=== PATIENT | male | born 1955 | race Caucasian/White ===

== ENCOUNTER 2020-04-14 07:26 | Inpatient (IN) ==
[2020-04-14] MEDS ORDERED: GLUCAGON 1 MG VIAL IM PRN (12:09)
[2020-04-14] MEDS ORDERED: DEXTROSE 50% 25 GM/50 ML VIAL IV PRN (12:09)
[2020-04-14] MEDS ORDERED: NITROGLYCERIN SL 0.4 MG TABLET SL PRN (12:15)
[2020-04-14] MEDS ORDERED: MORPHINE 4 MG/1 ML VIAL IV PRN (12:15)
[2020-04-14] MEDS ORDERED: CLORAZEPATE 3.75 MG TABLET PO PRN (12:15)
[2020-04-14] MEDS ORDERED: ZALEPLON 5 MG CAPSULE PO PRN (12:18)
[2020-04-14] MEDS ORDERED: SODIUM CHLORIDE 0.9% 1,000 ML IV SCH (12:30)
[2020-04-14 14:34] LABS: Basophils # 0.1 10*3/uL (0.0-0.2); Basophils % 0.9 % (0.0-0.8); Eosinophils # 0.4 10*3/uL (0.0-0.87); Eosinophils % 5.4 % (0.00-10.9); Hematocrit 39.2 VOL% (42.0-52.0); Hemoglobin 13.6 GM/DL (14.0-18.0); Immature Granulocytes % 0.3 %; Immature Granulocytes Absolute 0.02 #; Lymphocytes # 2.9 10*3/uL (1.4-4.0); Lymphocytes % 40.4 % (21.2-54.2); Mean Corpuscular HGB Conc 34.7 GM/DL (32-36); Mean Corpuscular Volume 88.7 FL (87-102); Mean Platelet Volume 9.5 FL (9.6-12.0); Monocytes % 7.8 % (1.7-12.7); Neutrophils % 45.2 % (38.7-73.9); Platelet Count 216 T/CUMM (130-400); Red Blood Count 4.42 MC/CUMM (3.8-5.5); Red Cell Distribution Width 12.3 % (9.3-17.3); White Blood Count 7.1 T/CUMM (4-12)
[2020-04-14 14:41] LABS: Bilirubin,Total 0.4 MG/DL (0.2-1.0); Calcium 9.4 MG/DL (8.5-10.1); Osmolality,Calculated 278.4 MOS/KG (273-304); Potassium 4.1 MMOL/L (3.5-5.1); Total Protein 7.9 G/DL (6.4-8.3)
[2020-04-14 15:45] LABS: ABG Base Excess 2.6 MMOL/L (-2.5-2.5); ABG HCO3 26.7 MMOL/L (20-26); ABG PCO2 41.4 MM HG (35-48); ABG PH 7.426 (7.35-7.45); ABG PO2 92.9 MM HG (80-95); ABG TCO2 23.5 MMOL/L (23-27); Allen Test Positive; Pt O2 Delivery Device Room Air
[2020-04-14] MEDS: CHLORHEXIDINE 4% SOLN 118 ML BOTTLE TOP SCH ×2 (17:47→20:43)
[2020-04-14] MEDS: CHLORHEXIDINE 0.12% ORAL RINSE 60 ML BOTTLE SWISH/SPIT SCH (20:36)
[2020-04-15] MEDS ORDERED: PAPAVERINE 60 MG/2 ML VIAL ONE (04:22)
[2020-04-15] MEDS ORDERED: VANCOMYCIN 500 MG VIAL ONE (04:23)
[2020-04-15] MEDS ORDERED: VANCOMYCIN 1,000 MG VIAL ONE (04:23)
[2020-04-15] MEDS ORDERED: CEFUROXIME INJ 1,500 MG in SYRINGE 1 EACH IV ONE (05:00)
[2020-04-15] MEDS ORDERED: FAMOTIDINE 20 MG TABLET PO ONE (05:45)
[2020-04-15] MEDS ORDERED: SODIUM CHLORIDE 0.9% 250 ML IV ONE (05:54)
[2020-04-15] MEDS ORDERED: AMINOCAPROIC ACID 5,000 MG/20 ML VIAL ONE (05:54)
[2020-04-15] MEDS ORDERED: LACTATED RINGERS 1,000 ML IV ONE (05:54)
[2020-04-15] MEDS ORDERED: VECURONIUM 10 MG VIAL IV ONE (05:54)
[2020-04-15] MEDS ORDERED: ETOMIDATE 40 MG/20 ML VIAL IV ONE (05:54)
[2020-04-15] MEDS ORDERED: PHENYLEPHRINE DRIP 20 MG/250 ML PREMIX IV ONE (05:54)
[2020-04-15] MEDS ORDERED: SEVOFLURANE 1 UNIT/15 MINUTE INH ONE ×10 (05:54→07:57)
[2020-04-15] MEDS ORDERED: NITROGLYCERIN DRIP 50 MG/250 ML BOTTLE IV ONE ×2 (05:54→11:57)
[2020-04-15] MEDS ORDERED: SODIUM CHLORIDE 0.9% 0 ML IV ONE ×3 (05:54→07:56)
[2020-04-15] MEDS ORDERED: SUFentanil 250 MCG/5 ML AMP ONE (05:55)
[2020-04-15] MEDS ORDERED: ePHEDrine 50 MG/ML VIAL ONE (05:55)
[2020-04-15] MEDS ORDERED: MIDAZOLAM 10 MG/2 ML VIAL ONE ×3 (05:55→07:58)
[2020-04-15] MEDS ORDERED: DIAZEPAM 5 MG TABLET PO ONE (06:00)
[2020-04-15] MEDS ORDERED: MINERAL OIL/PETROLATUM OPH OINT 3.5 GM TUBE ONE (06:16)
[2020-04-15 07:26] LABS: ABG Base Excess 1.3 MMOL/L (-2.5-2.5); ABG HCO3 25.6 MMOL/L (20-26); ABG PCO2 46.7 MM HG (35-48); ABG PH 7.373 (7.35-7.45); ABG TCO2 23.8 MMOL/L (23-27); Glucose Heart Surgery 124 MG/DL (74-106); Hematocrit Heart Surgery 40.2 PERCENT (42-52); Hemoglobin Heart Surgery 13.1 G/DL (14.0-18.0); Ionized Calcium Arterial 1.24 MMOL/L (1.21-1.46); PCO2 Patient Temp Arterial 46.7 MMHG; PH Patient Temp Arterial 7.373; Patient Temperature 37 CELCIUS; Potassium Heart/CVR 3.6 MMOL/L (3.5-5.1); Sodium Heart/CVR 139 MMOL/L (135-145)
[2020-04-15 07:35] LABS: Bacteria,Urine Occasional /HPF (Few); Bilirubin,Urine Negative (Negative); Blood, Urine Large mg/dL (Negative); Glucose,Urine (UA) Negative (Negative); Ketones,Urine Negative (Negative); Mucus,Urine Moderate /LPF (Occasional); Nitrite,Urine Negative (Negative); Protein,Urine Negative; RBC,Urine 201 /HPF (0-4); Urine Appearance CLEAR (Clear); Urine Color Yellow (Yellow); Urine Urobilinogen < 2.0 EU/DL (0.2-1.0); WBC,Urine 1 /HPF (0-6)
[2020-04-15] MEDS ORDERED: FUROSEMIDE 20 MG/2 ML VIAL ONE ×2 (07:40→10:23)
[2020-04-15] MEDS ORDERED: SODIUM BICARBONATE 50 MEQ/50 ML VIAL IV ONE (07:51)
[2020-04-15] MEDS ORDERED: POTASSIUM CHLORIDE RIDER 100 ML IV ONE (07:51)
[2020-04-15] MEDS ORDERED: NITROPRUSSIDE 50 MG/2 ML VIAL ONE (07:51)
[2020-04-15] MEDS ORDERED: PHENYLEPHRINE DRIP 40 MG/250 ML PREMIX IV ONE (07:51)
[2020-04-15] MEDS ORDERED: CALCIUM CHLORIDE 1,000 MG/10 ML SYRINGE IV ONE (07:52)
[2020-04-15] MEDS ORDERED: ALBUMIN 5% 12.5 GM/250 ML VIAL IV ONE (07:52)
[2020-04-15] MEDS ORDERED: SODIUM CHLORIDE 0.9% 1,000 ML IV ONE (07:57)
[2020-04-15 08:45] LABS: PCO2 Patient Temp Venous 37.1 MM HG; PH Patient Temp Venous 7.432; PO2 Patient Temp Venous 38.7 MM HG; Potassium Heart/CVR 4.5 MMOL/L (3.5-5.1); VBG Base Excess 0.8 MEQ/L (0-4); VBG HCO3 24.9 MEQ/L (24-28); VBG Oxygen Saturation 82.3 %; VBG PCO2 42.9 MMHG (41-51); VBG PH 7.389; VBG PO2 47.5 MMHG (17-40); VBG Total CO2 24.2 MMOL/L
[2020-04-15] MEDS ORDERED: HEPARIN/NACL 0.9% 2 UNITS/ML 500 ML IV ONE (09:03)
[2020-04-15 09:21] LABS: Hematocrit Heart Surgery 28.6 PERCENT (42-52); Hemoglobin Heart Surgery 9.2 G/DL (14.0-18.0); PCO2 Patient Temp Venous 38.1 MM HG; PH Patient Temp Venous 7.42; PO2 Patient Temp Venous 40.4 MM HG; Potassium Heart/CVR 4.9 MMOL/L (3.5-5.1); VBG Base Excess 0.5 MEQ/L (0-4); VBG HCO3 24.7 MEQ/L (24-28); VBG Oxygen Saturation 83.5 %; VBG PCO2 44.1 MMHG (41-51); VBG PH 7.377; VBG PO2 49.7 MMHG (17-40); VBG Total CO2 23.9 MMOL/L
[2020-04-15 09:53] LABS: Hematocrit Heart Surgery 31.7 PERCENT (42-52); Hemoglobin Heart Surgery 10.3 G/DL (14.0-18.0); PCO2 Patient Temp Venous 41.9 MM HG; PH Patient Temp Venous 7.389; PO2 Patient Temp Venous 45.5 MM HG; Potassium Heart/CVR 4.8 MMOL/L (3.5-5.1); VBG Base Excess 0.3 MEQ/L (0-4); VBG HCO3 24.4 MEQ/L (24-28); VBG Oxygen Saturation 79.7 %; VBG PCO2 41.9 MMHG (41-51); VBG PH 7.389; VBG PO2 45.5 MMHG (17-40); VBG Total CO2 23.1 MMOL/L
[2020-04-15 10:18] LABS: ABG Base Excess -1.9 MMOL/L (-2.5-2.5); ABG HCO3 22.9 MMOL/L (20-26); ABG PCO2 43.7 MM HG (35-48); ABG PH 7.345 (7.35-7.45); ABG TCO2 21.5 MMOL/L (23-27); Glucose Heart Surgery 214 MG/DL (74-106); Hematocrit Heart Surgery 33.9 PERCENT (42-52); Ionized Calcium Arterial 1.34 MMOL/L (1.21-1.46); PCO2 Patient Temp Arterial 43.7 MMHG; PH Patient Temp Arterial 7.345; Patient Temperature 37 CELCIUS; Potassium Heart/CVR 3.7 MMOL/L (3.5-5.1); Sodium Heart/CVR 134 MMOL/L (135-145)
[2020-04-15] MEDS ORDERED: ALBUMIN 25% 25 GM/100 ML VIAL IV ONE (10:22)
[2020-04-15] MEDS ORDERED: LIDOCAINE 2% 5 ML VIAL ONE (10:22)
[2020-04-15] MEDS ORDERED: PROTAMINE SULFATE 50 MG/5 ML VIAL IV ONE ×3 (10:23→12:03)
[2020-04-15] MEDS ORDERED: methylPREDNISolone SOD SUC 1,000 MG/8 ML VIAL ONE (10:23)
[2020-04-15] MEDS ORDERED: HEPARIN 10,000 UNIT/10 ML VIAL ONE (10:23)
[2020-04-15] MEDS ORDERED: PROTAMINE SULFATE 250 MG/25 ML VIAL IV ONE (10:23)
[2020-04-15] MEDS ORDERED: MAGNESIUM SULFATE 5 GM/10 ML VIAL IV ONE (10:23)
[2020-04-15] MEDS ORDERED: MANNITOL 100 GM/500 ML BAG IV ONE (10:23)
[2020-04-15] MEDS ORDERED: DEXTROSE 5% KCL 20 MEQ 20 MEQ/1,000 ML BAG IV ONE (10:23)
[2020-04-15] MEDS ORDERED: MAGNESIUM SULF RIDER 2 GM in PREMIX 1 EACH IV PRN (11:08)
[2020-04-15] MEDS ORDERED: INSULIN REGULAR 100 UNIT/ML IV PRN (11:08)
[2020-04-15] MEDS ORDERED: INSULIN REGULAR 100 UNIT/ML IV ONE (11:08)
[2020-04-15] MEDS ORDERED: ACETAMINOPHEN 650 MG SUPP RECTAL PRN (11:08)
[2020-04-15] MEDS ORDERED: INSULIN REGULAR DRIP 100 ML IV SCH (11:08)
[2020-04-15] MEDS ORDERED: NITROPRUSSIDE 100 MG in DEXTROSE 5% 250 ML IV PRN (11:08)
[2020-04-15] MEDS ORDERED: CALCIUM CHLORIDE 1,000 MG/10 ML SYRINGE IV PRN (11:08)
[2020-04-15] MEDS ORDERED: PHENYLEPHRINE DRIP 40 MG/250 ML PREMIX IV PRN (11:08)
[2020-04-15] MEDS ORDERED: MIDAZOLAM 2 MG/2 ML VIAL IV PRN (11:08)
[2020-04-15] MEDS ORDERED: MORPHINE 10 MG/1 ML VIAL IV PRN (11:08)
[2020-04-15] MEDS ORDERED: SODIUM CHLORIDE 0.45% 1,000 ML IV SCH ×2 (11:08)
[2020-04-15] MEDS ORDERED: CHLORHEXIDINE 4% SOLN 118 ML BOTTLE TOP PRN (11:08)
[2020-04-15] MEDS ORDERED: MAGNESIUM SULF RIDER 4 GM in PREMIX 1 EACH IV PRN (11:08)
[2020-04-15] MEDS ORDERED: VECURONIUM 10 MG VIAL IV PRN ×2 (11:08)
[2020-04-15] MEDS ORDERED: DEXTROSE 50% 25 GM/50 ML VIAL IV PRN ×2 (11:08)
[2020-04-15] MEDS ORDERED: ONDANSETRON 4 MG/2 ML VIAL IV PRN (11:08)
[2020-04-15 11:22] LABS: ABG Base Excess -1.3 MMOL/L (-2.5-2.5); ABG HCO3 23.3 MMOL/L (20-26); ABG PCO2 40.2 MM HG (35-48); ABG PH 7.378 (7.35-7.45); ABG TCO2 21.3 MMOL/L (23-27); Glucose Heart Surgery 166 MG/DL (74-106); Hematocrit Heart Surgery 34.1 PERCENT (42-52); Hemoglobin Heart Surgery 11.1 G/DL (14.0-18.0); Potassium Heart/CVR 3.7 MMOL/L (3.5-5.1)
[2020-04-15] MEDS: ALBUMIN 5% 12.5 GM in PREMIX 1 EACH IV PRN ×2 (11:26→12:38)
[2020-04-15] MEDS: CHLORHEXIDINE 4% SOLN 118 ML BOTTLE TOP SCH (11:32)
[2020-04-15] MEDS: POTASSIUM CHLORIDE RIDER 20 MEQ in PREMIX 1 EACH IV PRN ×4 (11:34→16:54)
[2020-04-15 11:39] LABS: Basophils # 0.1 10*3/uL (0.0-0.2); Basophils % 0.4 % (0.0-0.8); Eosinophils # 0.2 10*3/uL (0.0-0.87); Eosinophils % 1.7 % (0.00-10.9); Hematocrit 32.6 VOL% (42.0-52.0); Immature Granulocytes % 0.6 %; Immature Granulocytes Absolute 0.08 #; Lymphocytes # 1.5 10*3/uL (1.4-4.0); Lymphocytes % 11.7 % (21.2-54.2); Mean Corpuscular HGB Conc 33.7 GM/DL (32-36); Mean Corpuscular Volume 91.1 FL (87-102); Mean Platelet Volume 9.5 FL (9.6-12.0); Monocytes % 3.8 % (1.7-12.7); Neutrophils % 81.8 % (38.7-73.9); Red Blood Count 3.58 MC/CUMM (3.8-5.5); Red Cell Distribution Width 12.2 % (9.3-17.3)
[2020-04-15 11:43] LABS: INR 1.2; PT Patient Result 12.5 SECS (9.8-11.9); Partial Thromboplastin Time 27.4 SECS (23.9-33.8)
[2020-04-15 11:44] LABS: White Blood Count 12.6 T/CUMM (4-12)
[2020-04-15 11:45] LABS: Platelet Count 167 T/CUMM (130-400)
[2020-04-15] MEDS: CHLORHEXIDINE 0.12% ORAL RINSE 60 ML BOTTLE SWISH/SPIT SCH ×2 (11:48→20:29)
[2020-04-15 11:49] LABS: CKMB % 6.4 %
[2020-04-15 11:51] LABS: Troponin I 2.69 NG/ML (0.00-0.045)
[2020-04-15] MEDS ORDERED: NITROGLYCERIN DRIP 50 MG/250 ML BOTTLE IV PRN (11:57)
[2020-04-15 11:58] LABS: Albumin 3.4 G/DL (3.4-5.0); Bilirubin,Total 0.7 MG/DL (0.2-1.0); Calcium 8.1 MG/DL (8.5-10.1); Osmolality,Calculated 283.3 MOS/KG (273-304); Potassium 3.8 MMOL/L (3.5-5.1); Total Protein 6.1 G/DL (6.4-8.3)
[2020-04-15] MEDS: MIDAZOLAM 10 MG/2 ML VIAL IV PRN ×2 (12:12→14:00)
[2020-04-15] MEDS: POTASSIUM CHLORIDE RIDER 10 MEQ in PREMIX 1 EACH IV PRN ×2 (12:24→17:28)
[2020-04-15] MEDS: LACTATED RINGERS 250 ML IV PRN ×5 (12:33→14:46)
[2020-04-15] MEDS: MORPHINE 4 MG/1 ML VIAL IV PRN ×3 (13:20→20:19)
[2020-04-15 13:54] LABS: ABG Base Excess -2.4 MMOL/L (-2.5-2.5); ABG HCO3 22.4 MMOL/L (20-26); ABG PCO2 35.8 MM HG (35-48); ABG PH 7.396 (7.35-7.45); ABG TCO2 20.1 MMOL/L (23-27); Glucose Heart Surgery 166 MG/DL (74-106); Hematocrit Heart Surgery 29.7 PERCENT (42-52); Hemoglobin Heart Surgery 9.6 G/DL (14.0-18.0); Potassium Heart/CVR 3.4 MMOL/L (3.5-5.1)
[2020-04-15 16:37] LABS: ABG Base Excess -5.8 MMOL/L (-2.5-2.5); ABG HCO3 19.7 MMOL/L (20-26); ABG Oxygen Saturation 99.4 % (95-100); ABG PCO2 38.2 MM HG (35-48); ABG PH 7.322 (7.35-7.45); ABG TCO2 18.3 MMOL/L (23-27); Glucose Heart Surgery 219 MG/DL (74-106); Hematocrit Heart Surgery 28.1 PERCENT (42-52); Hemoglobin Heart Surgery 9.1 G/DL (14.0-18.0); Potassium Heart/CVR 3.7 MMOL/L (3.5-5.1)
[2020-04-15] MEDS: KETOROLAC 30 MG/1 ML VIAL IV SCH ×3 (17:11→22:51)
[2020-04-15] MEDS: CEFUROXIME INJ 1,500 MG in SYRINGE 1 EACH IV SCH (18:10)
[2020-04-15] MEDS: METOPROLOL TARTRATE 25 MG TABLET PO SCH (18:31)
[2020-04-15 20:04] LABS: ABG Base Excess -6.1 MMOL/L (-2.5-2.5); ABG HCO3 19.4 MMOL/L (20-26); ABG Oxygen Saturation 98.1 % (95-100); ABG PCO2 36.5 MM HG (35-48); ABG TCO2 17.6 MMOL/L (23-27); Glucose Heart Surgery 198 MG/DL (74-106); Hematocrit Heart Surgery 31.1 PERCENT (42-52); Hemoglobin Heart Surgery 10.1 G/DL (14.0-18.0); Potassium Heart/CVR 4.1 MMOL/L (3.5-5.1)
[2020-04-15 20:28] LABS: Troponin I 3.02 NG/ML (0.00-0.045)
[2020-04-15] MEDS: INSULIN REGULAR 100 UNIT/ML SUBCUT SCH (20:29)
[2020-04-15] MEDS ORDERED: ZOLPIDEM 5 MG TABLET PO ONE (21:09)
[2020-04-15] MEDS: CLORAZEPATE 3.75 MG TABLET PO PRN (21:39)
[2020-04-16] MEDS: CLORAZEPATE 3.75 MG TABLET PO PRN (04:14)
[2020-04-16 04:25] LABS: ABG Base Excess -2.4 MMOL/L (-2.5-2.5); ABG HCO3 22.4 MMOL/L (20-26); ABG Oxygen Saturation 97.2 % (95-100); ABG PCO2 37.5 MM HG (35-48); ABG PH 7.383 (7.35-7.45); ABG TCO2 20.5 MMOL/L (23-27); Glucose Heart Surgery 169 MG/DL (74-106); Hematocrit Heart Surgery 28.7 PERCENT (42-52); Hemoglobin Heart Surgery 9.3 G/DL (14.0-18.0); Potassium Heart/CVR 3.8 MMOL/L (3.5-5.1)
[2020-04-16 04:57] LABS: Basophils % 0.1 % (0.0-0.8); Hematocrit 27.1 VOL% (42.0-52.0); Hemoglobin 9.2 GM/DL (14.0-18.0); Immature Granulocytes % 0.6 %; Immature Granulocytes Absolute 0.07 #; Lymphocytes # 0.9 10*3/uL (1.4-4.0); Mean Corpuscular HGB Conc 33.9 GM/DL (32-36); Mean Corpuscular Volume 90.3 FL (87-102); Mean Platelet Volume 9.9 FL (9.6-12.0); Neutrophils % 86.3 % (38.7-73.9); Platelet Count 147 T/CUMM (130-400); Red Cell Distribution Width 13.1 % (9.3-17.3); White Blood Count 10.9 T/CUMM (4-12)
[2020-04-16 05:05] LABS: Troponin I 2.59 NG/ML (0.00-0.045)
[2020-04-16 05:12] LABS: Albumin 3.5 G/DL (3.4-5.0); Bilirubin,Direct 0.17 MG/DL (0.0-0.20); Bilirubin,Total 0.6 MG/DL (0.2-1.0); Calcium 8.5 MG/DL (8.5-10.1); Osmolality,Calculated 283.5 MOS/KG (273-304); Potassium 3.9 MMOL/L (3.5-5.1)
[2020-04-16] MEDS: POTASSIUM CHLORIDE RIDER 20 MEQ in PREMIX 1 EACH IV PRN (05:34)
[2020-04-16] MEDS: KETOROLAC 30 MG/1 ML VIAL IV SCH ×4 (05:34→23:23)
[2020-04-16] MEDS: CEFUROXIME INJ 1,500 MG in SYRINGE 1 EACH IV SCH ×2 (05:46→18:03)
[2020-04-16] MEDS ORDERED: FUROSEMIDE 40 MG/4 ML VIAL IV ONE (06:12)
[2020-04-16] MEDS ORDERED: FUROSEMIDE 40 MG/4 ML VIAL ONE (06:15)
[2020-04-16] MEDS ORDERED: DIAZEPAM 5 MG TABLET PO ONE (07:31)
[2020-04-16] MEDS: ASPIRIN EC 325 MG TABLET PO SCH (08:00)
[2020-04-16] MEDS: METOPROLOL TARTRATE 25 MG TABLET PO SCH ×2 (08:00→21:17)
[2020-04-16] MEDS: CHLORHEXIDINE 0.12% ORAL RINSE 60 ML BOTTLE SWISH/SPIT SCH ×3 (08:53→21:17)
[2020-04-16] MEDS ORDERED: MAGNESIUM SULF RIDER 2 GM in PREMIX 1 EACH IV PRN (08:55)
[2020-04-16] MEDS ORDERED: ACETAMINOPHEN 325 MG TABLET PO PRN (08:55)
[2020-04-16] MEDS ORDERED: ONDANSETRON 4 MG/2 ML VIAL IV PRN (08:55)
[2020-04-16] MEDS ORDERED: MAGNESIUM SULF RIDER 4 GM in PREMIX 1 EACH IV PRN (08:55)
[2020-04-16] MEDS ORDERED: DEXTROSE 50% 25 GM/50 ML VIAL IV PRN (08:55)
[2020-04-16] MEDS ORDERED: POTASSIUM CHLORIDE 20 MEQ TABLET PO PRN (08:55)
[2020-04-16] MEDS ORDERED: MAGNESIUM HYDROXIDE SUSP 30 ML UDCUP PO PRN (08:55)
[2020-04-16] MEDS ORDERED: GLUCAGON 1 MG VIAL IM PRN (08:55)
[2020-04-16] MEDS ORDERED: ALUMINUM/MAGNES/SIMETH MAX STR 30 ML UDCUP PO PRN (08:55)
[2020-04-16] MEDS: SODIUM CHLOR 0.45% KCL 20 MEQ 20 MEQ/1,000 ML BAG IV SCH (09:54)
[2020-04-16] MEDS: PANTOPRAZOLE 40 MG TABLET PO SCH (09:55)
[2020-04-16] MEDS: FERROUS SULFATE 325 MG TABLET PO SCH (09:55)
[2020-04-16] MEDS: DOCUSATE SODIUM 100 MG CAPSULE PO SCH (09:55)
[2020-04-16] MEDS ORDERED: OXYMETAZOLINE 0.05% NASAL SPRAY 15 ML BOTTLE BOTH NARES PRN (10:41)
[2020-04-16] MEDS: INSULIN REGULAR 100 UNIT/ML SUBCUT SCH (11:27)
[2020-04-16 12:57] LABS: Troponin I 2.89 NG/ML (0.00-0.045)
[2020-04-16] MEDS ORDERED: AMIODARONE INJ 150 MG in DEXTROSE 5% 100 ML IV ONE (17:08)
[2020-04-16] MEDS ORDERED: DILTIAZEM 50 MG/10 ML VIAL IV ONE (17:09)
[2020-04-16] MEDS ORDERED: DILTIAZEM INJ 100 MG in SODIUM CHLORIDE 0.9% 100 ML IV SCH (17:30)
[2020-04-16] MEDS: AMIODARONE INJ 450 MG in DEXTROSE 5% 241 ML IV SCH (17:45)
[2020-04-16] MEDS ORDERED: AMIODARONE INJ 450 MG in DEXTROSE 5% 241 ML IV SCH (18:00)
[2020-04-16] MEDS ORDERED: ZALEPLON 5 MG CAPSULE PO SCH (21:00)
[2020-04-16] MEDS: oxyCODONE/ACETAMINOPHEN 5-325 MG TABLET PO PRN (21:17)
[2020-04-16] MEDS: ROSUVASTATIN 20 MG TABLET PO SCH (21:17)
[2020-04-17] MEDS: AMIODARONE INJ 450 MG in DEXTROSE 5% 241 ML IV SCH (02:09)
[2020-04-17] MEDS: KETOROLAC 30 MG/1 ML VIAL IV SCH ×3 (05:16→19:03)
[2020-04-17] MEDS ORDERED: FUROSEMIDE 40 MG/4 ML VIAL IV ONE (06:00)
[2020-04-17 06:02] LABS: Basophils % 0.2 % (0.0-0.8); Eosinophils % 0.1 % (0.00-10.9); Hematocrit 30.2 VOL% (42.0-52.0); Hemoglobin 10.3 GM/DL (14.0-18.0); Immature Granulocytes % 0.9 %; Immature Granulocytes Absolute 0.16 #; Lymphocytes % 10.9 % (21.2-54.2); Mean Corpuscular HGB Conc 34.1 GM/DL (32-36); Mean Corpuscular Volume 90.7 FL (87-102); Mean Platelet Volume 10.3 FL (9.6-12.0); Monocytes % 9.3 % (1.7-12.7); Neutrophils % 78.6 % (38.7-73.9); Platelet Count 139 T/CUMM (130-400); Red Blood Count 3.33 MC/CUMM (3.8-5.5); Red Cell Distribution Width 13.4 % (9.3-17.3); White Blood Count 18.4 T/CUMM (4-12)
[2020-04-17 06:08] LABS: Albumin 3.2 G/DL (3.4-5.0); Albumin 3.4 G/DL (3.4-5.0); Bilirubin,Direct 0.18 MG/DL (0.0-0.20); Bilirubin,Direct 0.24 MG/DL (0.0-0.20); Bilirubin,Total 0.7 MG/DL (0.2-1.0); Bilirubin,Total 1.2 MG/DL (0.2-1.0); CKMB % 1.2 %; Calcium 8.5 MG/DL (8.5-10.1); Potassium 4.5 MMOL/L (3.5-5.1); Total Protein 5.9 G/DL (6.4-8.3); Total Protein 6.2 G/DL (6.4-8.3)
[2020-04-17 06:09] LABS: Troponin I 1.24 NG/ML (0.00-0.045)
[2020-04-17] MEDS: ASCORBIC ACID 500 MG TABLET PO SCH ×2 (09:27→19:59)
[2020-04-17] MEDS: AMIODARONE 200 MG TABLET PO SCH ×2 (09:27→20:00)
[2020-04-17] MEDS: CYANOCOBALAMIN 500 MCG TABLET PO SCH (09:27)
[2020-04-17] MEDS: ASPIRIN EC 325 MG TABLET PO SCH (09:27)
[2020-04-17] MEDS: METOPROLOL TARTRATE 25 MG TABLET PO SCH ×2 (09:27→19:59)
[2020-04-17] MEDS: PANTOPRAZOLE 40 MG TABLET PO SCH (09:27)
[2020-04-17] MEDS: DOCUSATE SODIUM 100 MG CAPSULE PO SCH (09:27)
[2020-04-17] MEDS: FERROUS SULFATE 325 MG TABLET PO SCH (09:27)
[2020-04-17] MEDS: oxyCODONE/ACETAMINOPHEN 5-325 MG TABLET PO PRN ×2 (09:37→19:59)
[2020-04-17] MEDS: CHLORHEXIDINE 0.12% ORAL RINSE 60 ML BOTTLE SWISH/SPIT SCH ×2 (09:40→20:00)
[2020-04-17] MEDS: SODIUM CHLOR 0.45% KCL 20 MEQ 20 MEQ/1,000 ML BAG IV SCH (09:40)
[2020-04-17] MEDS: ROSUVASTATIN 20 MG TABLET PO SCH (19:59)
[2020-04-17] MEDS ORDERED: traZODone 50 MG TABLET PO SCH (21:00)
[2020-04-18] MEDS: KETOROLAC 30 MG/1 ML VIAL IV SCH ×4 (00:09→17:09)
[2020-04-18 05:58] LABS: Basophils % 0.2 % (0.0-0.8); Eosinophils # 0.1 10*3/uL (0.0-0.87); Eosinophils % 0.6 % (0.00-10.9); Hematocrit 29.8 VOL% (42.0-52.0); Immature Granulocytes % 0.7 %; Immature Granulocytes Absolute 0.08 #; Lymphocytes % 25.1 % (21.2-54.2); Mean Corpuscular HGB Conc 33.6 GM/DL (32-36); Mean Platelet Volume 9.8 FL (9.6-12.0); Monocytes % 7.9 % (1.7-12.7); Neutrophils % 65.5 % (38.7-73.9); Platelet Count 139 T/CUMM (130-400); Red Blood Count 3.24 MC/CUMM (3.8-5.5); Red Cell Distribution Width 13.2 % (9.3-17.3); White Blood Count 11.9 T/CUMM (4-12)
[2020-04-18 06:22] LABS: Calcium 8.4 MG/DL (8.5-10.1); Osmolality,Calculated 279.8 MOS/KG (273-304); Potassium 3.6 MMOL/L (3.5-5.1)
[2020-04-18 06:26] LABS: Albumin 3.1 G/DL (3.4-5.0); Bilirubin,Direct 0.19 MG/DL (0.0-0.20); Bilirubin,Total 0.7 MG/DL (0.2-1.0); Calcium 8.3 MG/DL (8.5-10.1); Osmolality,Calculated 282.5 MOS/KG (273-304); Potassium 3.6 MMOL/L (3.5-5.1); Total Protein 5.9 G/DL (6.4-8.3)
[2020-04-18 06:27] LABS: Alanine Aminotransferase 43 U/L (16-61); Albumin 3.1 G/DL (3.4-5.0); Alkaline Phosphatase 39 U/L (45-117); Aspartate Amino Transferase 27 U/L (0-37); Bilirubin,Indirect 1.1 MG/DL (0.0-1.0); Total Protein 5.8 G/DL (6.4-8.3)
[2020-04-18 06:37] LABS: Troponin I 0.788 NG/ML (0.00-0.045)
[2020-04-18] MEDS ORDERED: POTASSIUM CHLORIDE 20 MEQ TABLET PO ONE (08:12)
[2020-04-18] MEDS ORDERED: FUROSEMIDE 40 MG/4 ML VIAL IV ONE (08:29)
[2020-04-18] MEDS ORDERED: AMIODARONE 150 MG/3 ML VIAL ONE (08:35)
[2020-04-18] MEDS ORDERED: AMIODARONE 450 MG/9 ML VIAL IV ONE (08:36)
[2020-04-18] MEDS ORDERED: DIGOXIN 0.5 MG/2 ML AMP IV ONE (08:42)
[2020-04-18] MEDS ORDERED: DILTIAZEM 50 MG/10 ML VIAL IV ONE (08:47)
[2020-04-18] MEDS ORDERED: AMIODARONE INJ 150 MG in DEXTROSE 5% 100 ML IV ONE (08:48)
[2020-04-18] MEDS: DILTIAZEM INJ 100 MG in SODIUM CHLORIDE 0.9% 100 ML IV SCH (09:41)
[2020-04-18] MEDS: ASPIRIN EC 325 MG TABLET PO SCH (10:17)
[2020-04-18] MEDS: APIXABAN 5 MG TABLET PO SCH ×2 (10:17→21:10)
[2020-04-18] MEDS: FERROUS SULFATE 325 MG TABLET PO SCH (10:17)
[2020-04-18] MEDS: CYANOCOBALAMIN 500 MCG TABLET PO SCH (10:18)
[2020-04-18] MEDS: AMIODARONE 200 MG TABLET PO SCH ×2 (10:18→21:11)
[2020-04-18] MEDS: PANTOPRAZOLE 40 MG TABLET PO SCH (10:18)
[2020-04-18] MEDS: METOPROLOL TARTRATE 25 MG TABLET PO SCH ×2 (10:18→21:10)
[2020-04-18] MEDS: ASCORBIC ACID 500 MG TABLET PO SCH ×2 (10:18→21:10)
[2020-04-18] MEDS: DOCUSATE SODIUM 100 MG CAPSULE PO SCH (10:18)
[2020-04-18] MEDS: CHLORHEXIDINE 0.12% ORAL RINSE 60 ML BOTTLE SWISH/SPIT SCH ×2 (10:25→21:16)
[2020-04-18] MEDS: ALBUTEROL/IPRATROPIUM 3 ML NEB RESP TX SCH ×2 (11:20→19:41)
[2020-04-18] MEDS: oxyCODONE/ACETAMINOPHEN 5-325 MG TABLET PO PRN (21:11)
[2020-04-18] MEDS: ZALEPLON 5 MG CAPSULE PO SCH (21:12)
[2020-04-18] MEDS: ROSUVASTATIN 20 MG TABLET PO SCH (21:15)
[2020-04-19] MEDS: ALBUTEROL/IPRATROPIUM 3 ML NEB RESP TX SCH ×4 (00:32→19:23)
[2020-04-19] MEDS: KETOROLAC 30 MG/1 ML VIAL IV SCH ×5 (00:53→23:30)
[2020-04-19 04:52] LABS: Basophils % 0.3 % (0.0-0.8); Eosinophils # 0.2 10*3/uL (0.0-0.87); Eosinophils % 2.4 % (0.00-10.9); Hematocrit 28.3 VOL% (42.0-52.0); Hemoglobin 9.4 GM/DL (14.0-18.0); Immature Granulocytes % 1.2 %; Immature Granulocytes Absolute 0.11 #; Lymphocytes # 2.6 10*3/uL (1.4-4.0); Lymphocytes % 27.6 % (21.2-54.2); Mean Corpuscular HGB Conc 33.2 GM/DL (32-36); Mean Corpuscular Volume 91.9 FL (87-102); Mean Platelet Volume 9.8 FL (9.6-12.0); Monocytes % 7.4 % (1.7-12.7); Neutrophils % 61.1 % (38.7-73.9); Platelet Count 159 T/CUMM (130-400); Red Blood Count 3.08 MC/CUMM (3.8-5.5); Red Cell Distribution Width 13.2 % (9.3-17.3); White Blood Count 9.6 T/CUMM (4-12)
[2020-04-19 05:07] LABS: Calcium 8.2 MG/DL (8.5-10.1); Osmolality,Calculated 283.5 MOS/KG (273-304); Potassium 3.7 MMOL/L (3.5-5.1)
[2020-04-19] MEDS: ASPIRIN EC 81 MG TABLET PO SCH (09:45)
[2020-04-19] MEDS: METOPROLOL TARTRATE 25 MG TABLET PO SCH ×2 (09:46→20:00)
[2020-04-19] MEDS: ASCORBIC ACID 500 MG TABLET PO SCH ×2 (09:46→20:00)
[2020-04-19] MEDS: FERROUS SULFATE 325 MG TABLET PO SCH (09:46)
[2020-04-19] MEDS: CYANOCOBALAMIN 500 MCG TABLET PO SCH (09:46)
[2020-04-19] MEDS: APIXABAN 5 MG TABLET PO SCH ×2 (09:46→20:00)
[2020-04-19] MEDS: DOCUSATE SODIUM 100 MG CAPSULE PO SCH (09:46)
[2020-04-19] MEDS: AMIODARONE 200 MG TABLET PO SCH ×2 (09:46→20:00)
[2020-04-19] MEDS: POTASSIUM CHLORIDE 20 MEQ TABLET PO SCH (09:46)
[2020-04-19] MEDS: PANTOPRAZOLE 40 MG TABLET PO SCH (09:46)
[2020-04-19] MEDS: oxyCODONE/ACETAMINOPHEN 5-325 MG TABLET PO PRN ×2 (09:52→22:03)
[2020-04-19] MEDS: CHLORHEXIDINE 0.12% ORAL RINSE 60 ML BOTTLE SWISH/SPIT SCH ×2 (09:54→20:00)
[2020-04-19] MEDS: DILTIAZEM INJ 100 MG in SODIUM CHLORIDE 0.9% 100 ML IV SCH (09:54)
[2020-04-19] MEDS: ROSUVASTATIN 20 MG TABLET PO SCH (20:00)
[2020-04-19] MEDS: ZALEPLON 5 MG CAPSULE PO SCH (22:03)
[2020-04-20] MEDS: ALBUTEROL/IPRATROPIUM 3 ML NEB RESP TX SCH ×4 (00:26→19:13)
[2020-04-20] MEDS: KETOROLAC 30 MG/1 ML VIAL IV SCH ×2 (04:21→11:17)
[2020-04-20 06:33] LABS: Basophils % 0.3 % (0.0-0.8); Eosinophils # 0.3 10*3/uL (0.0-0.87); Eosinophils % 3.6 % (0.00-10.9); Hematocrit 28.3 VOL% (42.0-52.0); Hemoglobin 9.6 GM/DL (14.0-18.0); Immature Granulocytes % 0.9 %; Immature Granulocytes Absolute 0.08 #; Lymphocytes # 2.8 10*3/uL (1.4-4.0); Lymphocytes % 30.8 % (21.2-54.2); Mean Corpuscular HGB Conc 33.9 GM/DL (32-36); Mean Corpuscular Volume 90.4 FL (87-102); Monocytes % 7.7 % (1.7-12.7); Neutrophils % 56.7 % (38.7-73.9); Platelet Count 196 T/CUMM (130-400); Red Blood Count 3.13 MC/CUMM (3.8-5.5); Red Cell Distribution Width 13.4 % (9.3-17.3); White Blood Count 9.1 T/CUMM (4-12)
[2020-04-20 07:03] LABS: Calcium 8.6 MG/DL (8.5-10.1); Osmolality,Calculated 279.8 MOS/KG (273-304)
[2020-04-20 07:13] LABS: Alanine Aminotransferase 57 U/L (16-61); Alkaline Phosphatase 54 U/L (45-117); Aspartate Amino Transferase 28 U/L (0-37); Bilirubin,Indirect 0.5 MG/DL (0.0-1.0); Blood Urea Nitrogen 30 MG/DL (7-18); Calcium 8.6 MG/DL (8.5-10.1); Carbon Dioxide 27 MMOL/L (21-32); Estimated Glom Filtration Rate 101 ML/MIN; Glucose 115 MG/DL (74-106); Osmolality,Calculated 281.7 MOS/KG (273-304); Sodium 138 MMOL/L (136-145); Total Protein 6.2 G/DL (6.4-8.3)
[2020-04-20 07:14] LABS: Troponin I 0.242 NG/ML (0.00-0.045)
[2020-04-20] MEDS: POLYETHYLENE GLYCOL POWDER 17 GM PACK PO SCH (08:00)
[2020-04-20] MEDS: METOPROLOL TARTRATE 25 MG TABLET PO SCH ×2 (08:00→21:01)
[2020-04-20] MEDS: POTASSIUM CHLORIDE 20 MEQ TABLET PO SCH (08:01)
[2020-04-20] MEDS: DOCUSATE SODIUM 100 MG CAPSULE PO SCH (08:01)
[2020-04-20] MEDS: CYANOCOBALAMIN 500 MCG TABLET PO SCH (08:01)
[2020-04-20] MEDS: ASCORBIC ACID 500 MG TABLET PO SCH ×2 (08:02→21:02)
[2020-04-20] MEDS: APIXABAN 5 MG TABLET PO SCH ×2 (08:03→21:02)
[2020-04-20] MEDS: FERROUS SULFATE 325 MG TABLET PO SCH (08:03)
[2020-04-20] MEDS: AMIODARONE 200 MG TABLET PO SCH ×2 (08:03→21:02)
[2020-04-20] MEDS: CHLORHEXIDINE 0.12% ORAL RINSE 60 ML BOTTLE SWISH/SPIT SCH ×2 (08:03→21:02)
[2020-04-20] MEDS: PANTOPRAZOLE 40 MG TABLET PO SCH (08:03)
[2020-04-20] MEDS: ASPIRIN EC 81 MG TABLET PO SCH (08:03)
[2020-04-20] MEDS ORDERED: LACTULOSE 20 GM/30 ML UDCUP PO PRN (12:00)
[2020-04-20] MEDS: oxyCODONE/ACETAMINOPHEN 5-325 MG TABLET PO PRN ×2 (14:59→21:19)
[2020-04-20] MEDS: ROSUVASTATIN 20 MG TABLET PO SCH (21:01)
[2020-04-20] MEDS: ZALEPLON 5 MG CAPSULE PO SCH (21:02)
[2020-04-21] MEDS: ALBUTEROL/IPRATROPIUM 3 ML NEB RESP TX SCH ×4 (01:27→18:59)
[2020-04-21 04:39] LABS: Basophils % 0.3 % (0.0-0.8); Eosinophils # 0.4 10*3/uL (0.0-0.87); Eosinophils % 3.6 % (0.00-10.9); Hematocrit 23.9 VOL% (42.0-52.0); Hemoglobin 7.8 GM/DL (14.0-18.0); Immature Granulocytes % 1.2 %; Immature Granulocytes Absolute 0.14 #; Lymphocytes # 3.1 10*3/uL (1.4-4.0); Lymphocytes % 26.8 % (21.2-54.2); Mean Corpuscular HGB Conc 32.6 GM/DL (32-36); Mean Corpuscular Volume 93.7 FL (87-102); Mean Platelet Volume 9.8 FL (9.6-12.0); Monocytes % 6.7 % (1.7-12.7); Neutrophils % 61.4 % (38.7-73.9); Platelet Count 224 T/CUMM (130-400); Red Blood Count 2.55 MC/CUMM (3.8-5.5); Red Cell Distribution Width 13.2 % (9.3-17.3); White Blood Count 11.5 T/CUMM (4-12)
[2020-04-21 05:06] LABS: Alanine Aminotransferase 60 U/L (16-61); Albumin 2.7 G/DL (3.4-5.0); Alkaline Phosphatase 47 U/L (45-117); Aspartate Amino Transferase 30 U/L (0-37); Bilirubin,Indirect 0.5 MG/DL (0.0-1.0); Blood Urea Nitrogen 32 MG/DL (7-18); Carbon Dioxide 27 MMOL/L (21-32); Estimated Glom Filtration Rate 89 ML/MIN; Glucose 117 MG/DL (74-106); Osmolality,Calculated 282.7 MOS/KG (273-304); Potassium 4.7 MMOL/L (3.5-5.1); Sodium 138 MMOL/L (136-145); Total Protein 5.8 G/DL (6.4-8.3)
[2020-04-21] MEDS ORDERED: SODIUM CHLORIDE 0.9% 1,000 ML IV PRN (09:04)
[2020-04-21] MEDS ORDERED: FUROSEMIDE 40 MG/4 ML VIAL IV ONE (09:05)
[2020-04-21] MEDS: METOPROLOL TARTRATE 25 MG TABLET PO SCH ×2 (10:08→20:36)
[2020-04-21] MEDS: oxyCODONE/ACETAMINOPHEN 5-325 MG TABLET PO PRN ×2 (10:09→21:02)
[2020-04-21] MEDS: POTASSIUM CHLORIDE 20 MEQ TABLET PO SCH (10:09)
[2020-04-21] MEDS: PANTOPRAZOLE 40 MG TABLET PO SCH (10:10)
[2020-04-21] MEDS: CYANOCOBALAMIN 500 MCG TABLET PO SCH (10:10)
[2020-04-21] MEDS: FERROUS SULFATE 325 MG TABLET PO SCH (10:11)
[2020-04-21] MEDS: DOCUSATE SODIUM 100 MG CAPSULE PO SCH (10:11)
[2020-04-21] MEDS: ASCORBIC ACID 500 MG TABLET PO SCH ×2 (10:11→20:36)
[2020-04-21] MEDS: AMIODARONE 200 MG TABLET PO SCH ×2 (10:12→20:36)
[2020-04-21] MEDS: ASPIRIN EC 81 MG TABLET PO SCH (10:12)
[2020-04-21] MEDS: CHLORHEXIDINE 0.12% ORAL RINSE 60 ML BOTTLE SWISH/SPIT SCH ×2 (10:50→20:36)
[2020-04-21] MEDS: POLYETHYLENE GLYCOL POWDER 17 GM PACK PO SCH (10:54)
[2020-04-21] MEDS: APIXABAN 5 MG TABLET PO SCH (12:57)
[2020-04-21] MEDS ORDERED: FUROSEMIDE 40 MG/4 ML VIAL IV SCH (17:00)
[2020-04-21] MEDS: ROSUVASTATIN 20 MG TABLET PO SCH (20:35)
[2020-04-21] MEDS: ZALEPLON 5 MG CAPSULE PO SCH (20:35)
[2020-04-22] MEDS: ALBUTEROL/IPRATROPIUM 3 ML NEB RESP TX SCH ×4 (01:59→19:12)
[2020-04-22] MEDS: oxyCODONE/ACETAMINOPHEN 5-325 MG TABLET PO PRN ×4 (04:52→22:29)
[2020-04-22 05:55] LABS: Basophils % 0.3 % (0.0-0.8); Eosinophils # 0.5 10*3/uL (0.0-0.87); Hematocrit 28.9 VOL% (42.0-52.0); Hemoglobin 9.6 GM/DL (14.0-18.0); Immature Granulocytes % 2.4 %; Immature Granulocytes Absolute 0.28 #; Lymphocytes # 2.9 10*3/uL (1.4-4.0); Mean Corpuscular HGB Conc 33.2 GM/DL (32-36); Mean Corpuscular Volume 93.5 FL (87-102); Mean Platelet Volume 9.3 FL (9.6-12.0); Monocytes % 7.8 % (1.7-12.7); NRBC # 0.02 10*3/uL; Neutrophils % 60.5 % (38.7-73.9); Platelet Count 223 T/CUMM (130-400); Red Blood Count 3.09 MC/CUMM (3.8-5.5); Red Cell Distribution Width 13.7 % (9.3-17.3); White Blood Count 11.5 T/CUMM (4-12)
[2020-04-22] MEDS ORDERED: FUROSEMIDE 40 MG/4 ML VIAL IV ONE (06:18)
[2020-04-22 06:34] LABS: Calcium 8.4 MG/DL (8.5-10.1); Potassium 3.7 MMOL/L (3.5-5.1)
[2020-04-22] MEDS: AMIODARONE 200 MG TABLET PO SCH ×2 (08:35→20:49)
[2020-04-22] MEDS: ASPIRIN EC 81 MG TABLET PO SCH (08:35)
[2020-04-22] MEDS: METOPROLOL TARTRATE 25 MG TABLET PO SCH ×2 (08:35→20:50)
[2020-04-22] MEDS: CYANOCOBALAMIN 500 MCG TABLET PO SCH (08:35)
[2020-04-22] MEDS: PANTOPRAZOLE 40 MG TABLET PO SCH (08:35)
[2020-04-22] MEDS: FERROUS SULFATE 325 MG TABLET PO SCH (08:36)
[2020-04-22] MEDS: POLYETHYLENE GLYCOL POWDER 17 GM PACK PO SCH (08:36)
[2020-04-22] MEDS: DOCUSATE SODIUM 100 MG CAPSULE PO SCH (08:36)
[2020-04-22] MEDS: ASCORBIC ACID 500 MG TABLET PO SCH ×2 (08:36→20:49)
[2020-04-22] MEDS: POTASSIUM CHLORIDE 20 MEQ TABLET PO SCH (08:36)
[2020-04-22] MEDS: CHLORHEXIDINE 0.12% ORAL RINSE 60 ML BOTTLE SWISH/SPIT SCH ×2 (10:53→20:50)
[2020-04-22] MEDS: ROSUVASTATIN 20 MG TABLET PO SCH (20:49)
[2020-04-22] MEDS: ZALEPLON 5 MG CAPSULE PO SCH (22:29)
[2020-04-23] MEDS: ALBUTEROL/IPRATROPIUM 3 ML NEB RESP TX SCH ×4 (00:11→19:38)
[2020-04-23 05:53] LABS: Basophils % 0.4 % (0.0-0.8); Eosinophils # 0.6 10*3/uL (0.0-0.87); Hemoglobin 10.6 GM/DL (14.0-18.0); Immature Granulocytes Absolute 0.22 #; Lymphocytes # 2.8 10*3/uL (1.4-4.0); Lymphocytes % 25.4 % (21.2-54.2); Mean Corpuscular HGB Conc 34.2 GM/DL (32-36); Mean Corpuscular Volume 92.8 FL (87-102); Mean Platelet Volume 9.1 FL (9.6-12.0); NRBC # 0.03 10*3/uL; Neutrophils % 59.2 % (38.7-73.9); Platelet Count 245 T/CUMM (130-400); Red Blood Count 3.34 MC/CUMM (3.8-5.5); Red Cell Distribution Width 13.5 % (9.3-17.3); White Blood Count 11.1 T/CUMM (4-12)
[2020-04-23 06:06] LABS: Calcium 8.5 MG/DL (8.5-10.1); Osmolality,Calculated 271.2 MOS/KG (273-304); Potassium 3.9 MMOL/L (3.5-5.1)
[2020-04-23] MEDS ORDERED: hydrALAZINE 20 MG/1 ML VIAL IV PRN (06:12)
[2020-04-23] MEDS: oxyCODONE/ACETAMINOPHEN 5-325 MG TABLET PO PRN ×2 (07:35→13:28)
[2020-04-23] MEDS: DOCUSATE SODIUM 100 MG CAPSULE PO SCH (08:58)
[2020-04-23] MEDS: PANTOPRAZOLE 40 MG TABLET PO SCH (08:58)
[2020-04-23] MEDS: AMIODARONE 200 MG TABLET PO SCH ×2 (08:58→21:17)
[2020-04-23] MEDS: CYANOCOBALAMIN 500 MCG TABLET PO SCH (08:58)
[2020-04-23] MEDS: hydroCHLOROthiazide 25 MG TABLET PO SCH (08:58)
[2020-04-23] MEDS: METOPROLOL TARTRATE 25 MG TABLET PO SCH ×2 (08:59→21:17)
[2020-04-23] MEDS: POTASSIUM CHLORIDE 20 MEQ TABLET PO SCH (08:59)
[2020-04-23] MEDS: FERROUS SULFATE 325 MG TABLET PO SCH (08:59)
[2020-04-23] MEDS: ASCORBIC ACID 500 MG TABLET PO SCH ×2 (08:59→21:16)
[2020-04-23] MEDS: POLYETHYLENE GLYCOL POWDER 17 GM PACK PO SCH (09:00)
[2020-04-23] MEDS: CHLORHEXIDINE 0.12% ORAL RINSE 60 ML BOTTLE SWISH/SPIT SCH ×2 (09:00→21:20)
[2020-04-23] MEDS: LOSARTAN 25 MG TABLET PO SCH ×2 (09:06→21:17)
[2020-04-23] MEDS: ASPIRIN EC 81 MG TABLET PO SCH (10:55)
[2020-04-23] MEDS: ROSUVASTATIN 20 MG TABLET PO SCH (21:16)
[2020-04-23] MEDS: ZALEPLON 5 MG CAPSULE PO SCH (21:17)
[2020-04-24] MEDS: ALBUTEROL/IPRATROPIUM 3 ML NEB RESP TX SCH ×4 (01:48→19:29)
[2020-04-24 06:10] LABS: Basophils % 0.3 % (0.0-0.8); Eosinophils # 0.4 10*3/uL (0.0-0.87); Eosinophils % 3.4 % (0.00-10.9); Hematocrit 29.9 VOL% (42.0-52.0); Hemoglobin 9.6 GM/DL (14.0-18.0); Immature Granulocytes Absolute 0.21 #; Lymphocytes # 1.9 10*3/uL (1.4-4.0); Lymphocytes % 17.6 % (21.2-54.2); Mean Corpuscular HGB Conc 32.1 GM/DL (32-36); Mean Corpuscular Volume 97.1 FL (87-102); Mean Platelet Volume 8.8 FL (9.6-12.0); Monocytes % 7.3 % (1.7-12.7); NRBC # 0.02 10*3/uL; Neutrophils % 69.4 % (38.7-73.9); Platelet Count 237 T/CUMM (130-400); Red Blood Count 3.08 MC/CUMM (3.8-5.5); Red Cell Distribution Width 13.9 % (9.3-17.3); White Blood Count 10.7 T/CUMM (4-12)
[2020-04-24 06:25] LABS: Calcium 8.4 MG/DL (8.5-10.1); Osmolality,Calculated 269.2 MOS/KG (273-304); Potassium 3.7 MMOL/L (3.5-5.1)
[2020-04-24] MEDS: ASPIRIN EC 81 MG TABLET PO SCH (08:42)
[2020-04-24] MEDS: POTASSIUM CHLORIDE 20 MEQ TABLET PO SCH (08:42)
[2020-04-24] MEDS: CYANOCOBALAMIN 500 MCG TABLET PO SCH (08:42)
[2020-04-24] MEDS: LOSARTAN 25 MG TABLET PO SCH ×2 (08:42→21:50)
[2020-04-24] MEDS: hydroCHLOROthiazide 25 MG TABLET PO SCH (08:42)
[2020-04-24] MEDS: FERROUS SULFATE 325 MG TABLET PO SCH (08:42)
[2020-04-24] MEDS: DOCUSATE SODIUM 100 MG CAPSULE PO SCH (08:42)
[2020-04-24] MEDS: AMIODARONE 200 MG TABLET PO SCH ×2 (08:42→21:49)
[2020-04-24] MEDS: METOPROLOL TARTRATE 25 MG TABLET PO SCH ×2 (08:43→21:50)
[2020-04-24] MEDS: PANTOPRAZOLE 40 MG TABLET PO SCH (08:43)
[2020-04-24] MEDS: ASCORBIC ACID 500 MG TABLET PO SCH ×2 (08:43→21:49)
[2020-04-24] MEDS: POLYETHYLENE GLYCOL POWDER 17 GM PACK PO SCH (08:43)
[2020-04-24] MEDS: CHLORHEXIDINE 0.12% ORAL RINSE 60 ML BOTTLE SWISH/SPIT SCH ×2 (08:43→21:58)
[2020-04-24] MEDS ORDERED: POTASSIUM CHLORIDE 20 MEQ TABLET PO ONE (13:03)
[2020-04-24] MEDS: oxyCODONE/ACETAMINOPHEN 5-325 MG TABLET PO PRN ×2 (16:27→21:54)
[2020-04-24] MEDS: ZALEPLON 5 MG CAPSULE PO SCH (21:50)
[2020-04-24] MEDS: APIXABAN 5 MG TABLET PO SCH (21:50)
[2020-04-24] MEDS: ROSUVASTATIN 20 MG TABLET PO SCH (21:50)
[2020-04-25] MEDS: ALBUTEROL/IPRATROPIUM 3 ML NEB RESP TX SCH ×4 (01:39→19:18)
[2020-04-25 05:19] LABS: Basophils % 0.4 % (0.0-0.8); Eosinophils # 0.4 10*3/uL (0.0-0.87); Hematocrit 28.8 VOL% (42.0-52.0); Hemoglobin 9.4 GM/DL (14.0-18.0); Immature Granulocytes % 1.7 %; Immature Granulocytes Absolute 0.15 #; Lymphocytes # 2.3 10*3/uL (1.4-4.0); Lymphocytes % 25.2 % (21.2-54.2); Mean Corpuscular HGB Conc 32.6 GM/DL (32-36); Mean Corpuscular Volume 94.1 FL (87-102); Mean Platelet Volume 8.7 FL (9.6-12.0); Monocytes % 9.1 % (1.7-12.7); Neutrophils % 59.6 % (38.7-73.9); Platelet Count 247 T/CUMM (130-400); Red Blood Count 3.06 MC/CUMM (3.8-5.5)
[2020-04-25 05:44] LABS: Calcium 8.4 MG/DL (8.5-10.1); Osmolality,Calculated 270.1 MOS/KG (273-304); Potassium 3.4 MMOL/L (3.5-5.1)
[2020-04-25] MEDS ORDERED: POTASSIUM CHLORIDE 20 MEQ TABLET PO ONE (07:00)
[2020-04-25] MEDS: FERROUS SULFATE 325 MG TABLET PO SCH (08:27)
[2020-04-25] MEDS: DOCUSATE SODIUM 100 MG CAPSULE PO SCH (08:27)
[2020-04-25] MEDS: CYANOCOBALAMIN 500 MCG TABLET PO SCH (08:27)
[2020-04-25] MEDS: ASPIRIN EC 81 MG TABLET PO SCH (08:27)
[2020-04-25] MEDS: APIXABAN 5 MG TABLET PO SCH ×2 (08:28→20:32)
[2020-04-25] MEDS: POLYETHYLENE GLYCOL POWDER 17 GM PACK PO SCH (08:28)
[2020-04-25] MEDS: LOSARTAN 25 MG TABLET PO SCH ×2 (08:28→20:32)
[2020-04-25] MEDS: CHLORHEXIDINE 0.12% ORAL RINSE 60 ML BOTTLE SWISH/SPIT SCH ×2 (08:28→20:33)
[2020-04-25] MEDS: POTASSIUM CHLORIDE 20 MEQ TABLET PO SCH (08:28)
[2020-04-25] MEDS: METOPROLOL TARTRATE 25 MG TABLET PO SCH ×3 (08:28→20:35)
[2020-04-25] MEDS: PANTOPRAZOLE 40 MG TABLET PO SCH (08:28)
[2020-04-25] MEDS: ASCORBIC ACID 500 MG TABLET PO SCH ×2 (08:28→20:32)
[2020-04-25] MEDS: AMIODARONE 200 MG TABLET PO SCH ×2 (08:28→20:32)
[2020-04-25] MEDS: hydroCHLOROthiazide 25 MG TABLET PO SCH (08:28)
[2020-04-25] MEDS: oxyCODONE/ACETAMINOPHEN 5-325 MG TABLET PO PRN ×2 (11:44→18:23)
[2020-04-25] MEDS: ROSUVASTATIN 20 MG TABLET PO SCH (20:32)
[2020-04-25] MEDS: ZALEPLON 5 MG CAPSULE PO SCH (20:33)
[2020-04-26] MEDS: ALBUTEROL/IPRATROPIUM 3 ML NEB RESP TX SCH ×2 (00:54→09:09)
[2020-04-26 05:51] LABS: Basophils % 0.3 % (0.0-0.8); Eosinophils # 0.4 10*3/uL (0.0-0.87); Eosinophils % 4.4 % (0.00-10.9); Hematocrit 29.6 VOL% (42.0-52.0); Hemoglobin 9.4 GM/DL (14.0-18.0); Immature Granulocytes % 1.4 %; Immature Granulocytes Absolute 0.12 #; Lymphocytes # 1.7 10*3/uL (1.4-4.0); Lymphocytes % 19.8 % (21.2-54.2); Mean Corpuscular HGB Conc 31.8 GM/DL (32-36); Mean Corpuscular Volume 95.8 FL (87-102); Mean Platelet Volume 8.5 FL (9.6-12.0); Monocytes % 6.8 % (1.7-12.7); Neutrophils % 67.3 % (38.7-73.9); Platelet Count 247 T/CUMM (130-400); Red Blood Count 3.09 MC/CUMM (3.8-5.5); White Blood Count 8.6 T/CUMM (4-12)
[2020-04-26 06:49] LABS: Calcium 8.2 MG/DL (8.5-10.1); Osmolality,Calculated 267.2 MOS/KG (273-304); Potassium 3.6 MMOL/L (3.5-5.1)
[2020-04-26 08:02] VITALS: BP 142/70
[2020-04-26] MEDS ORDERED: METOPROLOL SUCCINATE XL 25 MG TABLET PO SCH (09:00)
[2020-04-26] MEDS: POTASSIUM CHLORIDE 20 MEQ TABLET PO SCH (09:25)
[2020-04-26] MEDS: LOSARTAN 25 MG TABLET PO SCH (09:25)
[2020-04-26] MEDS: DOCUSATE SODIUM 100 MG CAPSULE PO SCH (09:25)
[2020-04-26] MEDS: ASCORBIC ACID 500 MG TABLET PO SCH (09:26)
[2020-04-26] MEDS: ASPIRIN EC 81 MG TABLET PO SCH (09:26)
[2020-04-26] MEDS: AMIODARONE 200 MG TABLET PO SCH (09:27)
[2020-04-26] MEDS: PANTOPRAZOLE 40 MG TABLET PO SCH (09:27)
[2020-04-26] MEDS: CYANOCOBALAMIN 500 MCG TABLET PO SCH (09:27)
[2020-04-26] MEDS: FERROUS SULFATE 325 MG TABLET PO SCH (09:28)
[2020-04-26] MEDS: hydroCHLOROthiazide 25 MG TABLET PO SCH (09:28)
[2020-04-26] MEDS: oxyCODONE/ACETAMINOPHEN 5-325 MG TABLET PO PRN (09:29)
[2020-04-26] MEDS: POLYETHYLENE GLYCOL POWDER 17 GM PACK PO SCH (09:31)
[2020-04-26] MEDS: CHLORHEXIDINE 0.12% ORAL RINSE 60 ML BOTTLE SWISH/SPIT SCH (09:31)
== END 2020-04-26 12:09 | disposition home health service (06) | DRG 235 ==
LOC: N.4E 13:20 → N.CVR 04-15 10:40 → N.TELES 04-16 14:25